=== PATIENT | female | born 1970 | race Caucasian/White ===

== ENCOUNTER 2018-08-12 17:18 | Emergency (ER) | payer BC ==
[2018-08-12 17:39] VITALS: BP 117/65
--- NOTE | 2018-08-12 17:53 | EDM.PDOC ---
ED HPI GENERAL MEDICAL PROBLEM - General Chief Complaint: General Stated Complaint: PAIN AND REDNESS TO RIGHT ARM Time Seen by Provider: 08/12/18 17:20 Source of Information: Reports: Patient History Limitations: Reports: No Limitations - History of Present Illness INITIAL COMMENTS - FREE TEXT/NARRATIVE: According to patient she claims she got a bug bite yesterday. She claims it was slightly itchy, but no pain. She claims that there is swelling around the bite noticed today. No pain in the lesion. No fever or chills. No other complaints. Onset Date: 08/11/18 Location: Reports: Upper Extremity, Right Severity: Mild Improves with: Reports: None Worsens with: Reports: None Associated Symptoms: Denies: Confusion, Chest Pain, Cough, Diaphoresis, Fever/ Chills, Headaches, Nausea/Vomiting, Rash, Seizure, Shortness of Breath, Syncope , Weakness left forearm Pain Score (Numeric/FACES): 5 - Related Data Allergies Allergy/AdvReac Type Severity Reaction Status Date / Time No Known Allergies Allergy Verified 04/29/15 14:17 Home Meds: Home Meds Heparin Sodium,Porcine/PF [Heparin Sod 1,000 Unit/ml Vial] 2,000 units IJ BID [History] Methyldopa 500 mg PO DAILY 04/29/15 [History] Pnv No.122/Iron/Folic Acid [ Multi Tablet] 1 each PO DAILY 04/29/15 [ History] Past Medical History Cardiovascular History: Reports: Blood Clots/VTE/DVT, Hypertension 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: Endocrine/Metabolic History: Reports: Diabetes, Gestational - Past Surgical History Female Surgical History: Reports: Section Neurological Surgical History: Reports: Lumbar Spine Musculoskeletal Surgical History: Reports: Arthroscopic Knee Social & Family History - Living Situation & Occupation Living situation: Reports: Single, with Significant Other, with Family Occupation: Employed ED ROS GENERAL - Review of Systems Review Of Systems: See Below Constitutional: Denies: Fever, Chills, Malaise, Weakness HEENT: Denies: Rhinitis, Throat Pain, Throat Swelling Respiratory: Denies: Shortness of Breath, Cough, Sputum Cardiovascular: Denies: Chest Pain GI/Abdominal: Denies: Abdominal Pain, Nausea, Vomiting Musculoskeletal: Denies: Joint Pain, Joint Swelling Skin: Reports: Rash (Left forearm: there is a small bite blanca over the mid forearm. There is minimal erythema and induration around the bite). Denies: Bruising, Pruritis, Wound Neurological: Denies: Confusion ED EXAM, GENERAL - Physical Exam Exam: See Below Exam Limited By: No Limitations General Appearance: Alert, WD/WN, No Apparent Distress Eye Exam: Bilateral Eye: EOMI, PERRL Ears: Normal External Exam, Normal Canal, Hearing Grossly Normal, Normal TMs Ear Exam: Bilateral Ear: Auricle Normal, Canal Normal, TM normal Nose: Normal Inspection, Normal Mucosa, No Blood Throat/Mouth: Normal Inspection, Normal Lips, Normal Teeth, Normal Gums, Normal Oropharynx, Normal Voice, No Airway Compromise Head: Atraumatic, Normocephalic Neck: Normal Inspection, Supple, Non-Tender, Full Range of Motion Respiratory/Chest: No Respiratory Distress, Lungs Clear, Normal Breath Sounds, No Accessory Muscle Use, Chest Non-Tender Cardiovascular: Normal Peripheral Pulses, Regular Rate, Rhythm, No Edema, No Gallop, No JVD, No Murmur, No Rub Skin Exam: Warm, Intact, Rash (Rigth forearm: ) Course - Vital Signs Text/Narrative:: Pt reassured that she has bug bite , there is localized reaction. Advised Benadryl cream locally, should resolve without complication. She is upto date on tetanus. Simple bandaid applied and followup with primary care if symptoms worsen. Last Recorded V/S: Last Vital Signs Temp 98.5 F 08/12/18 17:33 Pulse 76 08/12/18 17:33 Resp 16 08/12/18 17:33 BP 117/65 08/12/18 17:33 Pulse Ox 98 08/12/18 17:33 Departure - Departure Time of Disposition: 17:45 Disposition: Home, Self-Care 01 Condition: Good Clinical Impression: Bug bite - Discharge Information *PRESCRIPTION DRUG MONITORING PROGRAM REVIEWED*: Not Applicable *COPY OF PRESCRIPTION DRUG MONITORING REPORT IN PATIENT SIXTO: Not Applicable Instructions: Insect Bite, Adult, [id number] Forms: ED Department Discharge Additional Instructions: Put benadryl cream and antibiotic ointment on the site until the site looks better. If the site gets worse please return to the clinic or the ER if you are having any further issues. - Problem List & Annotations (1) Bug bite SNOMED Code(s): 172679541, 559888362 Code(s): W57.XXXA - BIT/STUNG BY NONVENOM INSECT & OTH NONVENOM ARTHROPODS, INIT Status: Acute Current Visit: Yes - Problem List Review Problem List Initiated/Reviewed/Updated: Yes - Assessment/Plan Assessment:: Right Forearm bug bite Plan: Pt reassured that she has bug bite , there is localized reaction. Advised Benadryl cream locally, should resolve without complication. She is upto date on tetanus. Simple bandaid applied and followup with primary care if symptoms worsen.
== END 2018-08-12 17:45 | disposition home or self-care (01) ==
LOC: LB.ED 17:18
DX: S50.861A Insect bite (nonvenomous) of right forearm, initial encounter (principal); W57.XXXA Bitten or stung by nonvenomous insect and other nonvenomous arthropods, initial encounter
CPT/HCPCS: 99281

== ENCOUNTER 2020-02-10 14:25 | Emergency (ER) | payer BC ==
[2020-02-10] MEDS ORDERED: Ibuprofen 600 MG Tab PO ONE (14:41)
[2020-02-10] MEDS ORDERED: traMADol 50 MG Tab PO ONE (14:41)
--- NOTE | 2020-02-10 14:48 | EDM.PDOC ---
ED HPI GENERAL MEDICAL PROBLEM - General Chief Complaint: Lower Extremity Injury/Pain Stated Complaint: FOOT PAIN Time Seen by Provider: 02/10/20 14:35 Source of Information: Reports: Patient History Limitations: Reports: No Limitations - History of Present Illness INITIAL COMMENTS - FREE TEXT/NARRATIVE: 49 year old female presents to ED after a fall on the ice last night. She c/o right knee, tib/fib, ankle, and foot pain. She has taken ibuprofen and tramadol at home with good relief however she has not taken anything for the pain since 0500 today. She has been unable to bear weight and there is slight swelling to RLE. She states she did hit her head, but denies any LOMBARDI after or now. Denies any other injuries, SOB, cough, CP, fever, back pain. Location: Reports: Lower Extremity, Left Severity: Moderate Improves with: Reports: Medication Worsens with: Reports: Movement - Related Data Allergies Allergy/AdvReac Type Severity Reaction Status Date / Time No Known Allergies Allergy Verified 04/29/15 14:17 Home Meds: Home Meds Heparin Sodium,Porcine/PF [Heparin Sod 1,000 Unit/ml Vial] 2,000 units IJ BID 04/29/15 [History] Methyldopa 500 mg PO DAILY 04/29/15 [History] No122/Iron/Folic Acid [ Multi Tablet] 1 each PO DAILY 04/29/15 [History] traMADol [Ultram] 50 mg PO Q6H PRN #10 tab 02/10/20 [Rx] Past Medical History Cardiovascular History: Reports: Blood Clots/VTE/DVT, 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: Endocrine/Metabolic History: Reports: Diabetes, Gestational - Past Surgical History Female Surgical History: Reports: Section Neurological Surgical History: Reports: Lumbar Spine Musculoskeletal Surgical History: Reports: Arthroscopic Knee Social & Family History - Living Situation & Occupation Living situation: Reports: Single, with Significant Other, with Family Occupation: Employed Review of Systems - Review of Systems Review Of Systems: See Below Constitutional: Reports: No Symptoms Eyes: Reports: No Symptoms Ears: Reports: No Symptoms Nose: Reports: No Symptoms Mouth/Throat: Reports: No Symptoms Respiratory: Reports: No Symptoms Cardiovascular: Reports: No Symptoms GI/Abdominal: Reports: No Symptoms Genitourinary: Reports: No Symptoms Musculoskeletal: Reports: Leg Pain Skin: Reports: No Symptoms Neurological: Reports: No Symptoms Psychiatric: Reports: No Symptoms ED EXAM, GENERAL - Physical Exam Exam: See Below Exam Limited By: No Limitations General Appearance: Alert, Moderate Distress Ears: Normal External Exam Nose: Normal Inspection Throat/Mouth: Normal Inspection, Normal Voice Head: Atraumatic Neck: Normal Inspection, Full Range of Motion Respiratory/Chest: No Respiratory Distress Cardiovascular: Regular Rate, Rhythm Peripheral Pulses: 3+: Popliteal (L), Popliteal (R), Posterior Tibial (L), Posterior Tibial (R), Dorsalis Pedis (L), Dorsalis Pedis (R) Back Exam: Full Range of Motion Extremities: Normal Range of Motion, Other (right LE slight swelling, pain with any movement, able to move toes, CMS +) Neurological: Alert, Oriented Psychiatric: Normal Affect, Normal Mood Skin Exam: Warm, Dry, Intact Lymphatic: No Adenopathy Course - Vital Signs Last Recorded V/S: Last Vital Signs Temp 98.0 F 02/10/20 14:58 Pulse 98 02/10/20 14:58 Resp 16 02/10/20 14:58 BP 159/89 H 02/10/20 14:58 Pulse Ox 97 02/10/20 14:58 - Orders/Labs/Meds Orders: Active Orders 24 hr Category Date Time Status Ankle 2V Rt [CR] Stat Exams 02/10/20 14:40 Ordered Foot Comp Min 3V Rt [CR] Stat Exams 02/10/20 14:45 Taken Tibia Fibula Rt [CR] Stat Exams 02/10/20 14:40 Ordered Meds: Medications Discontinued Medications Generic Name Dose Route Start Last Admin Trade Name Alfonso PRN Reason Stop Dose Admin Ibuprofen 600 mg 02/10/20 14:41 02/10/20 14:47 Motrin PO 02/10/20 14:42 600 mg ONETIME ONE Administration Tramadol HCl 50 mg 02/10/20 14:41 02/10/20 14:46 Ultram PO 02/10/20 14:42 50 mg ONETIME ONE Administration Departure - Departure Time of Disposition: 15:34 Disposition: Home, Self-Care 01 Clinical Impression: Ankle fracture, lateral malleolus, closed Qualifiers: Encounter type: initial encounter Fracture alignment: nondisplaced Laterality: right Qualified Code(s): S82.64XA - Nondisplaced fracture of lateral malleolus of right fibula, initial encounter for closed fracture - Discharge Information *PRESCRIPTION DRUG MONITORING PROGRAM REVIEWED*: Not Applicable *COPY OF PRESCRIPTION DRUG MONITORING REPORT IN PATIENT SIXTO: Not Applicable Prescriptions: traMADol [Ultram] 50 mg PO Q6H PRN #10 tab PRN Reason: Pain Instructions: Nondisplaced Fibular Ankle Fracture Treated With Immobilization, Adult Forms: ED Department Discharge Additional Instructions: Ice and elevate at home over the next 24-48 hours. Follow up with ortho next week. Do not remove the splint. Ensure that you are moving your toes and checking circulation as we discussed. Return to ED for any increased or new concerning symptoms. You may use crutches and weight bear as tolerated/needed. Continue to take yout tramadol and ibuprofen at home for pain. Sepsis Event Note (ED) - Focused Exam Vital Signs: Vital Signs Temp Pulse Resp BP Pulse Ox 02/10/20 14:58 98.0 F 98 16 159/89 H 97 - My Orders Last 24 Hours: My Active Orders 02/10/20 14:40 Ankle 2V Rt [CR] Stat Tibia Fibula Rt [CR] Stat 02/10/20 14:45 Foot Comp Min 3V Rt [CR] Stat - Assessment/Plan Last 24 Hours: My Active Orders 02/10/20 14:40 Ankle 2V Rt [CR] Stat Tibia Fibula Rt [CR] Stat 02/10/20 14:45 Foot Comp Min 3V Rt [CR] Stat
[2020-02-10 15:00] VITALS: BP 159/89; PULSE 98
[2020-02-10] MEDS ORDERED: traMADol 50 MG Tab ONE (15:30)
--- NOTE | 2020-02-11 09:02 | CR ---
Date of Service: 02/10/20 Clinical Data: injury RIGHT ANKLE: There is soft tissue swelling over the lateral malleolus. There is a mildly displaced oblique fracture through the distal fibular metaphysis. No other acute abnormalities. [id number] [facility]
--- NOTE | 2020-02-11 09:04 | CR ---
Date of Service: 02/10/20 Clinical Data: injury RIGHT LOWER LEG: The mildly displaced fracture through the distal fibular metaphysis is again seen. No other acute abnormalities. [id number] [facility]
--- NOTE | 2020-02-11 09:05 | CR ---
Date of Service: 02/10/20 Clinical Data: injury RIGHT FOOT: The minimally displaced oblique fracture through the distal fibula is again seen. No other acute abnormalities. [id number] [facility]
== END 2020-02-10 15:45 | disposition home or self-care (01) ==
LOC: LB.ED 14:25
DX: S82.64XA Nondisplaced fracture of lateral malleolus of right fibula, initial encounter for closed fracture (principal); I10 Essential (primary) hypertension; W00.0XXA Fall on same level due to ice and snow, initial encounter
CPT/HCPCS: 29515; 73590-RT; 73600-RT; 73630-RT; 99283; 99283-25; A9270-GY